=== PATIENT | female | born 1970 | race Caucasian/White ===

== ENCOUNTER 2019-05-23 22:21 | Observation (INO) ==
[2019-05-24] MEDS ORDERED: TYLENOL PO PRN (00:57)
[2019-05-24] MEDS ORDERED: ZOFRAN IV PRN (00:57)
[2019-05-24] MEDS ORDERED: SODIUM CHLORIDE 0.9% INJ ONE (01:01)
[2019-05-24] MEDS ORDERED: PROTONIX IV ONE (01:01)
[2019-05-24 01:47] LABS: BASO# 0.01 X1000 (0.0-0.2); BASO% 0.1 % (0.0-0.8); HEMOGLOBIN 12.4 g/dL (12.0-16.0); IMM GRAN# 0.03 X1000 (0.0-0.04); IMM GRAN% 0.2 % (0.0-0.5); LYMPH# 0.87 X1000 (1.2-3.4); LYMPH% 7.1 % (20.5-51.1); MCH 30.5 PG (27-31); MCHC 32.6 g/dL (33-37); MCV 93.4 FL (81-99); MONO# 0.47 X1000 (0.11-0.59); MONO% 3.8 % (1.7-9.3); MPV 9.3 FL (7.4-10.4); NEUT# 10.86 X1000 (1.4-6.5); NEUT% 88.8 % (42.2-75.2); PLT 268 X1000 (130-400); RBC 4.07 XMIL (4.2-5.4); RDW 12.6 % (11.5-14.5); WBC 12.24 X1000 (4.8-10.8)
[2019-05-24 01:57] LABS: AGAP 14; ALB/GLOB RATIO 1.4; ALBUMIN 3.6 g/dL (3.5-5.0); ALKALINE PHOSPHATASE 88 U/L (32-104); BUN 15 mg/dL (8-22); CALCIUM 8.7 mg/dL (8.8-10.2); CHLORIDE 104 mmol/L (98-107); COSMO 279; CREATININE 0.8 mg/dL (0.5-0.9); ESTIMATED GFR > 60; GLUCOSE 105 mg/dL (70-104); GOT 13 U/L (10-30); GPT 11 U/L (10-36); POTASSIUM 3.8 mmol/L (3.5-5.1); SODIUM 139 mmol/L (136-145); TCO2 21 mmol/L (25-35); TOTAL BILIRUBIN 0.42 mg/dL (0.20-1.00); TOTAL PROTEIN 6.2 g/dL (6.3-8.3)
[2019-05-24 02:26] LABS: BASO 1 % (0-1); LYMPHS 2 % (21-51); MONO 4 % (1-9); SEGS 93 % (42-75)
[2019-05-24] MEDS: FLAGYL 500 MG/NS 500 MG/100 ML IVPB IV SCH ×4 (03:30→20:25)
[2019-05-24] MEDS: NS 1,000 ML IV SCH ×3 (03:30→17:12)
[2019-05-24] MEDS: CIPRO 400 MG/D5W 400 MG/200 ML IVPB IV SCH ×2 (03:30→12:45)
--- NOTE | 2019-05-24 07:27 | EKG Report ---
Test Performed on : 05/24/2019 07:12:31 AM Test Reason : tachycardia Blood Pressure : / mmHG Vent. Rate : 121 BPM Atrial Rate : 121 BPM P-R Int : 132 ms QRS Dur : 076 ms QT Int : 324 ms P-R-T Axes : 052 028 046 degrees QTc Int : 460 ms Sinus tachycardia. Otherwise normal ECG No previous ECGs available Confirmed by Jonatan NICHOLSON, P.J.M ([id number]) on 05/24/2019 6:32:51 PM
--- NOTE | 2019-05-24 07:47 | HISTORY AND PHYSICAL ---
She sees Dr. Clement Leroy outpatient. CHIEF COMPLAINT: Nausea and vomiting. HISTORY OF PRESENT ILLNESS: Ms. Voss is a 49-year-old female who comes in from [facility] after having nausea, vomiting, diarrhea and fever. States it has been going on and getting increasingly worse over the last couple of days, so she went to the emergency room. She does have a past medical history of inflammatory bowel disease and gastritis. She was diagnosed with colitis and sepsis and sent to [place] for further evaluation and treatment. She will be admitted to the Medical Floor for further evaluation and treatment. PAST MEDICAL HISTORY: See HPI. PAST SURGICAL HISTORY: Partial hysterectomy, cholecystectomy, section x2. SOCIAL HISTORY: Lives at home with family. No tobacco, alcohol or illicit drugs. FAMILY HISTORY: Reviewed and found to be not pertinent to this admission. ALLERGIES: Sulfa, penicillin, nitroglycerin, pseudoephedrine, Flonase and chlorpheniramine. HOME MEDICATIONS: No known home medications. REVIEW OF SYSTEMS: A 14-point review of systems was conducted with the patient and pertinent positives listed above in the HPI. All other systems reviewed and found to be negative. PHYSICAL EXAMINATION: VITAL SIGNS: Temperature 98.4, pulse 123, blood pressure 145/74, oxygen saturation 97% on room air. GENERAL: A pleasant 49-year-old female lying in the Medical Floor bed, alert and oriented x3, answers all questions appropriately. HEENT: Head is atraumatic and normocephalic. Pupils are equal, round and reactive to light. Extraocular eye movement is intact. Sclerae nonicteric. Conjunctivae pink. Oral mucosa is mildly dry. NECK: Supple. No JVD. No thyromegaly. Trachea is midline. No cervical lymphadenopathy. CARDIAC: S1 and S2 appreciated. No murmurs, gallops or rubs. LUNGS: Clear to auscultation bilaterally. No rhonchi, wheezes or rales. Symmetric rise and fall with respirations. ABDOMEN: Soft, nondistended and nontender. Bowel sounds present in all 4 quadrants. Normoactive. No pulsatile mass. No organomegaly. EXTREMITIES: No cyanosis, clubbing or edema. There are 1+ pedal pulses bilaterally. GENITOURINARY: No bladder distention. The patient voids. Otherwise deferred. NEUROLOGICAL: Alert and oriented x3. Cranial nerves II through XII grossly intact. DIAGNOSTIC DATA: WBC is 12.24, hemoglobin 12.2, hematocrit 38, platelet count 68. Sodium is 139, potassium 3.8, chloride 104, carbon dioxide 21, BUN is 15, creatinine 0.8, glucose 105. ASSESSMENT: 1. Colitis. 2. Leukocytosis secondary to number 1. 3. Volume depletion. PLAN: We will place the patient on the Medical Floor. Continue fluids. Zofran for nausea. We will give Cipro and Flagyl IV. Clear liquid diet at this time. Further recommendations per the patient's clinical course. Dictated by ANA Dalal for Yoan Hodges MD I have performed a face to face diagnostic evaulation. Labs/ xrays- reviewed. Exam- Chest- clear, CV- regular, Abdomen- soft. A/P- Colitis- Admit, IV ABX, IV Fluids. Dr. Hodges cc: ANA Dalal MD [facility]
[2019-05-24] MEDS: TYLENOL PO PRN ×2 (12:56→21:21)
--- NOTE | 2019-05-24 20:43 | PROGRESS NOTE ---
DATE: 05/24/2019 SUBJECTIVE: The patient's chart was reviewed. In summary, patient was admitted overnight with intractable nausea, vomiting, diarrhea, and fever. While at the emergency department in [place], patient ruled in for underlying sepsis. CT scan confirmed an underlying colitis. The patient was transferred to [facility]. Since being here, patient has been treated with Cipro and Flagyl therapy. IV hydration has been pursued. This morning upon my arrival, patient stated she was feeling somewhat improved. She was tolerating a liquid diet. This evening patient states she had some diarrhea through the day but denies nausea and vomiting. Again, she tolerated liquids. She denies fevers, chills, shortness of breath, or chest discomfort. OBJECTIVE: T-max 99.7 degrees, heart rate 106 to 123, respirations 16 to 20, blood pressure 117 to 145 over 68 to 74.General: Well nourished, well developed, no acute distress. Cardiovascular: Tachycardic, regular rhythm. No significant murmurs, rubs, or gallops. Pulmonary: Clear to auscultation bilaterally. Abdomen: Soft, nontender, nondistended. Positive bowel sounds. Extremities: Moves all extremities well. No significant clubbing, cyanosis, or edema. Dermatologic: Evaluation reveals no evidence of rash. LABORATORY DATA: None. ASSESSMENT AND PLAN: 1. Colitis/enteritis-this was diagnosed per CT scan. White blood cell count was noted to be elevated with a left shift. At this point, continuing Cipro and Flagyl therapy is most appropriate. We will remain aware this also could be secondary to an underlying viral illness. 2. Leukocytosis with left shift-we will confirm the blood cultures were drawn at an outside hospital. We will continue antibiotic intervention as noted. 3. Volume depletion-patient is treated with intravenous fluids. She is approaching euvolemia. At present time, she is tolerating a clear liquid diet. 4. Nausea/vomiting/diarrhea-patient is achieving improvement while hospitalized. We will continue supportive care. 5. Questionable sepsis-the patient's lactic acid was noted to be elevated at the outside hospital. This likely was secondary to volume depletion. At this point, I do not expect that she truly is septic, however we will continue to monitor closely. 6. Disposition. At this point, patient continues to require fdc care in a hospital setting. We will plan discharge home once appropriate. cc: Clement Leroy MD
[2019-05-25] MEDS: CIPRO 400 MG/D5W 400 MG/200 ML IVPB IV SCH ×2 (01:12→12:58)
[2019-05-25] MEDS: FLAGYL 500 MG/NS 500 MG/100 ML IVPB IV SCH ×3 (03:22→12:56)
[2019-05-25] MEDS: NS 1,000 ML IV SCH (07:23)
[2019-05-25 08:21] LABS: AGAP 13; ALB/GLOB RATIO 1.2; ALBUMIN 3.3 g/dL (3.5-5.0); ALKALINE PHOSPHATASE 86 U/L (32-104); BUN 6 mg/dL (8-22); CALCIUM 8.7 mg/dL (8.8-10.2); CHLORIDE 106 mmol/L (98-107); COSMO 281; CREATININE 0.6 mg/dL (0.5-0.9); ESTIMATED GFR > 60; GLUCOSE 102 mg/dL (70-104); GOT 23 U/L (10-30); GPT 19 U/L (10-36); POTASSIUM 3.5 mmol/L (3.5-5.1); SODIUM 142 mmol/L (136-145); TCO2 23 mmol/L (25-35); TOTAL BILIRUBIN 0.33 mg/dL (0.20-1.00); TOTAL PROTEIN 6.1 g/dL (6.3-8.3)
[2019-05-25 08:27] LABS: BASO# 0.01 X1000 (0.0-0.2); BASO% 0.1 % (0.0-0.8); EOS# 0.02 X1000 (0.0-0.7); EOS% 0.3 % (0.0-10.0); HEMATOCRIT 37.3 % (37.0-47.0); HEMOGLOBIN 12.1 g/dL (12.0-16.0); IMM GRAN# 0.02 X1000 (0.0-0.04); IMM GRAN% 0.3 % (0.0-0.5); LYMPH# 2.67 X1000 (1.2-3.4); MCH 30.6 PG (27-31); MCHC 32.4 g/dL (33-37); MCV 94.2 FL (81-99); MONO# 0.76 X1000 (0.11-0.59); MONO% 9.7 % (1.7-9.3); MPV 9.4 FL (7.4-10.4); NEUT# 4.38 X1000 (1.4-6.5); NEUT% 55.6 % (42.2-75.2); PLT 245 X1000 (130-400); RBC 3.96 XMIL (4.2-5.4); RDW 12.5 % (11.5-14.5); WBC 7.86 X1000 (4.8-10.8)
[2019-05-25] MEDS: TYLENOL PO PRN (09:19)
[2019-05-25 14:15] VITALS: BP 124/73
--- NOTE | 2019-05-25 23:55 | DISCHARGE SUMMARY ---
ADMISSION DATE: 05/23/2019 DISCHARGE DATE: 05/25/2019 ADMISSION DIAGNOSIS: Nausea and vomiting. DISCHARGE DIAGNOSES: 1. Colitis/enteritis, bacterial versus viral. 2. Leukocytosis, resolved. 3. Volume depletion, resolved . 4. Nausea/vomiting/diarrhea, improving. 5. Questionable sepsis, resolved. CONSULTATIONS: None. PROCEDURES: CT scan was performed at outside hospital which revealed probable colitis and enteritis. HISTORY AND PHYSICAL EXAMINATION: See admit note. PHYSICAL EXAMINATION PRIOR TO DISCHARGE: Temperature 98.3 degrees, heart rate 87, respirations 18, blood pressure is 124/73. General: Well nourished, well developed, no acute distress. Cardiovascular: Regular rate and rhythm. No significant murmurs, rubs, or gallops. Pulmonary: Clear to auscultation bilaterally. Abdomen: Soft, nontender, nondistended. Positive bowel sounds. Extremities: Moves all extremities well. No significant clubbing, cyanosis, or edema. Dermatologic: Evaluation reveals no evidence of rash. LABORATORY DATA: White blood cell count 7.86, hemoglobin 12.1, hematocrit 37.3, platelet count 245,000. Sodium 142, potassium 3.5, chloride 106, bicarb 23, BUN 6, creatinine 0.6, glucose 102, calcium 8.7, total bilirubin 0.33, total protein 6.1, albumin 3.3, alkaline phosphatase 86, AST 23, ALT 19. HOSPITAL COURSE: Patient was admitted as per history and physical examination. Hospital course per condition is as follows. 1. Colitis/enteritis-upon admission, patient was noted to have abdominal pain, nausea, vomiting and diarrhea. CT scan was consistent with a colitis/enteritis. While I suspect this may have been viral in etiology, with an elevated white blood cell count, aggressive management was deemed warranted. The patient was started on ciprofloxacin and Flagyl therapy. With treatment and with IV fluids, patient's condition improved. The patient will be discharged home with 5 additional days of ciprofloxacin and Flagyl therapy. We will follow patient closely as an outpatient. 2. Leukocytosis-question is raised whether this was a true leukocytosis or demargination in the setting of nausea, vomiting and diarrhea. With treatment with antibiotics, IV fluids and time, white blood cell count normalized. We will follow this as well. 3. Volume depletion-the patient was treated with IV fluids while hospitalized with resolution. 4. Nausea/vomiting/diarrhea-this likely was a consequence of her underlying colitis/enteritis. With symptomatic management, patient achieved improvement while hospitalized. We will follow this as an outpatient as well. 5. Questionable sepsis-upon arrival in the emergency department, patient's lactic acid was elevated. White blood cell count was also noted to be elevated. I suspect the lactic acid was simply present secondary to volume depletion. Blood cultures returned negative. The patient was treated supportively while hospitalized with resolution of these symptoms. DISCHARGE CONDITION: Good. DISPOSITION: Discharge to home. MEDICATIONS: 1. Flagyl 500 mg 3 times daily for 5 days. 2. Cipro 500 mg twice daily for 5 days. FOLLOWUP: Patient is to follow up with me in approximately 1 to 2 weeks. cc: Clement Leroy MD
== END 2019-05-25 15:03 | disposition home or self-care (01) ==
LOC: INTOOBSV 22:21 → DIRADM 22:21 → 3N 05-24
PROVIDERS: ADMIT Internal Medicine; ATTEND Internal Medicine